=== PATIENT | male | born 1970 | race Caucasian/White ===

== ENCOUNTER 2023-06-15 09:05 | Inpatient (IN) ==
[2023-06-15 10:20] LABS: Calcium 9.8 mg/dL (8.6-10.3); Creatinine, Serum 1.22 mg/dL (0.67-1.17); Potassium 4.1 mmol/L (3.5-5.0); eGFR CKD-EPI 71.3 (>60)
[2023-06-15 12:27] LABS: Influenza A Molecular Negative (Negative); Influenza B Molecular Negative (Negative)
[2023-06-16] MEDS ORDERED: Metoprolol Tartrate 5 mg VIAL 5 ml VIAL (1 mg/ml) IV ONE (06:15)
[2023-06-16 06:29] LABS: Creatinine, Serum 1.17 mg/dL (0.67-1.17); Magnesium 2.2 mg/dL (1.9-2.7); Potassium 3.9 mmol/L (3.5-5.0)
[2023-06-16] MEDS ORDERED: Metoprolol Tartrate 5 mg VIAL 5 ml VIAL (1 mg/ml) IV PRN (06:32)
[2023-06-16] MEDS ORDERED: Potassium Chlor 20 meq TAB.ER PO ONE (10:00)
[2023-06-17 06:46] LABS: Calcium 8.5 mg/dL (8.6-10.3); Creatinine, Serum 0.96 mg/dL (0.67-1.17); Potassium 4.3 mmol/L (3.5-5.0); eGFR CKD-EPI 95.1 (>60)
[2023-06-17 09:30] VITALS: BP 127/73
== END 2023-06-17 12:00 | disposition home or self-care (01) | DRG 201 ==
LOC: MEDTELE → OBSVTOIN 09:05
PROVIDERS: ADMIT Specialist; ATTEND Specialist

== ENCOUNTER 2023-06-22 05:38 | Observation (INO) ==
[2023-06-22] MEDS: Metoprolol Tartrate 5 mg VIAL 5 ml VIAL (1 mg/ml) IV ONE (06:14)
[2023-06-22 06:33] LABS: ABS Eosinophils 0.2 10^3/uL (0.0-0.5); ABS Lymphocytes 2.4 10^3/uL (1.0-4.8); ABS Monocytes 0.8 10^3/uL (0.0-1.1); ABS Neutrophils 4.6 10^3/uL (1.5-7.6); ABS Nucleated RBC 0.01 10^3/ul; Eosinophil % 2.2 %; Hematocrit 47.7 % (38-53); Hemoglobin 16.7 g/dL (13.2-16.3); Mean Corpuscular Hemoglobin 31.3 pg (27-33); Mean Corpuscular Volume 89.4 fL (80-97); Mean Platelet Volume 7.9 fL (7.5-11.2); Nucleated Red Blood Cells % 0.1 %/100WBC (0.0-0.8); Platelet Count 206 10^3/uL (150-450); Red Blood Count 5.33 10^6/uL (4.06-5.63); Red Cell Distribution Width 12.9 % (12-17)
[2023-06-22 06:36] LABS: INR 1.08 (0.83-1.13)
[2023-06-22 06:41] LABS: Urine Appearance Clear; Urine Bilirubin Negative (Negative); Urine Blood Negative (Negative); Urine Color Colorless; Urine Glucose Negative (Negative); Urine Ketones Negative (Negative); Urine Nitrite Negative (Negative); Urine Protein Negative (Negative); Urine Specific Gravity 1.002 (1.002-1.030); Urine Urobilinogen Negative (Negative)
[2023-06-22 06:50] LABS: Albumin 4.7 g/dL (3.2-5.2); Albumin/Globulin Ratio 1.6 (1-3); Calcium 9.5 mg/dL (8.6-10.3); Creatinine, Serum 1.1 mg/dL (0.67-1.17); Globulin 2.9 g/dL (2-4); Potassium 3.7 mmol/L (3.5-5.0); Total Bilirubin 0.5 mg/dL (0.2-1.0); Total Protein 7.6 g/dL (6.4-8.9); eGFR CKD-EPI 80.8 (>60)
[2023-06-22 07:49] LABS: High Sensitivity Troponin 1 Hr 6 pg/mL (<20)
[2023-06-22 08:09] LABS: Magnesium 2.1 mg/dL (1.9-2.7)
[2023-06-22] MEDS: Potassium Chlor 20 meq TAB.ER PO ONE (09:56)
[2023-06-22] MEDS: Ramelteon 8 mg TAB (NF) PO ONE (23:19)
[2023-06-23 06:06] LABS: ABS Eosinophils 0.2 10^3/uL (0.0-0.5); ABS Lymphocytes 2.7 10^3/uL (1.0-4.8); ABS Monocytes 0.7 10^3/uL (0.0-1.1); ABS Nucleated RBC 0.02 10^3/ul; Eosinophil % 2.6 %; Hematocrit 45.1 % (38-53); Hemoglobin 15.5 g/dL (13.2-16.3); Lymphocyte % 35.3 %; Mean Corpuscular Hemoglobin 30.8 pg (27-33); Mean Corpuscular Hgb Conc 34.3 g/dL (31-36); Mean Corpuscular Volume 89.9 fL (80-97); Nucleated Red Blood Cells % 0.3 %/100WBC (0.0-0.8); Platelet Count 199 10^3/uL (150-450); Red Blood Count 5.01 10^6/uL (4.06-5.63); White Blood Count 7.7 10^3/uL (3.6-10.2)
[2023-06-23 06:21] LABS: Calcium 9.2 mg/dL (8.6-10.3); Creatinine, Serum 0.96 mg/dL (0.67-1.17); Potassium 4.3 mmol/L (3.5-5.0); eGFR CKD-EPI 95.1 (>60)
[2023-06-23 09:39] VITALS: BP 128/82
== END 2023-06-23 12:55 | disposition home or self-care (01) ==
LOC: ED 05:38 → EDHOLD 05:38 → SUATTDRO 09:26 → MEDTELE 11:11
PROVIDERS: ADMIT Internal Medicine; ATTEND Hospitalist